=== PATIENT | female | born 1955 | race Caucasian/White ===

== ENCOUNTER → 2018-06-21 | Outpatient (CLI) | payer OTHER ==
--- NOTE | 2018-06-26 11:25 | MM ---
Reason for exam: screening (asymptomatic). Last mammogram was performed 1 year and 11 months ago. History: Patient is postmenopausal. Physical Findings: A clinical breast exam by your physician is recommended on an annual basis and results should be correlated with mammographic findings. MG Screening Mammo w CAD Bilateral CC and MLO view(s) were taken. Prior study comparison: July 27, 2016, bilateral MG 3d screening mammo w/cad. May 30, 2015, bilateral MG screening mammo w CAD. There are scattered fibroglandular densities. Benign appearing bilateral calcifications. No suspicious abnormality. No significant changes when compared with prior studies. ASSESSMENT: Benign, BI-RAD 2 RECOMMENDATION: Routine screening mammogram of both breasts in 1 year.
== END | disposition home or self-care (01) ==
LOC: RADMAMWWP 06:45
PROVIDERS: ATTEND Family Medicine
DX: Z12.31 Encounter for screening mammogram for malignant neoplasm of breast (principal)
CPT/HCPCS: 77067

== ENCOUNTER 2018-07-28 07:41 | Day surgery (SDC) | payer OTHER ==
[2018-07-27 08:40] VITALS: BMI 37.3
[~2018-07-28 07:41] MED LIST: LACTATED RINGERS 1,000 ML IV SCH
[2018-07-28 08:41] VITALS: RESP 16; TEMP 97.8
[2018-07-28 09:01] LABS: Glucose,Whole Blood 125 mg/dL (75-99)
[2018-07-28] MEDS ORDERED: PROPOFOL 10 MG/ML 20 ML VIAL IV ONE (09:31)
--- NOTE | 2018-07-28 09:33 | P.GSHP ---
History of Present Illness H&P Date: 07/28/18 Chief Complaint: History of colon polyps This is a 63-year-old female who presents today for colonoscopy. Patient has history of colon polyps. Her last colonoscopy was 3 years ago. Past Medical History Past Medical History: Diabetes Mellitus Additional Past Medical History / Comment(s): ON LISINOPRIL AND ATORVASTATIN FOR DIABETES. DOES NOT HAVE HIGH B/P OR HIGH CHOLESTEROL History of Any Multi-Drug Resistant Organisms: None Reported Additional Past Surgical History / Comment(s): COLONOSCOPY Past Anesthesia/Blood Transfusion Reactions: No Reported Reaction Smoking Status: Never smoker - Past Family History Brother(s) Family Medical History: Cancer Father Family Medical History: Cancer Medications and Allergies Home Medications Medication Instructions Recorded Confirmed Type Aspirin [Adult Low Dose Aspirin EC] 81 mg PO DAILY 07/27/18 07/27/18 History Atorvastatin [Lipitor] 10 mg PO HS 07/27/18 07/28/18 History Cholecalciferol [Vitamin D3] 5,000 unit PO DAILY 07/27/18 07/27/18 History Cyanocobalamin (Vitamin B-12) 1,000 mcg PO DAILY 07/27/18 07/27/18 History [Vitamin B-12] Lisinopril [Zestril] 10 mg PO DAILY 07/27/18 07/28/18 History Pyridoxine [Vitamin B-6] 50 mg PO DAILY 07/27/18 07/27/18 History Tumeric 500 mg PO DAILY 07/27/18 07/28/18 History metFORMIN HCL [Glucophage] 500 mg PO BID 07/27/18 07/28/18 History Allergies Allergy/AdvReac Type Severity Reaction Status Date / Time ibuprofen Allergy PASSED Verified 07/27/18 08:31 OUT, PALMS SWEATY AND ITCHING , FOGGY Sulfa (Sulfonamide Allergy RASH, FELT Verified 07/27/18 08:31 Antibiotics) FOGGY Surgical - Exam Vital Signs Temp Pulse Resp BP Pulse Ox 97.8 F 87 16 143/79 96 07/28/18 08:39 07/28/18 08:39 07/28/18 08:39 07/28/18 08:39 07/28/18 08:39 - General well developed, no distress - Eyes PERRL - ENT normal pinna - Neck no masses - Respiratory normal expansion - Cardiovascular Rhythm: regular - Abdomen Abdomen: soft, non tender Results - Labs Abnormal Lab Results - Last 24 Hours (Table) 07/28/18 Range/Units 08:53 POC Glucose (mg/dL) 125 H (75-99) mg/dL Assessment and Plan Assessment: History of colon polyps. We'll perform colonoscopy.
--- NOTE | 2018-07-28 09:46 | P.OP ---
Date of Procedure: 07/28/18 Preoperative Diagnosis: History of colon polyps Postoperative Diagnosis: Colonoscopy Procedure(s) Performed: Colonoscopy Anesthesia: MAC Surgeon: Demetrius Bustamante Pathology: none sent Condition: stable Disposition: PACU Description of Procedure: PROCEDURE: The patient was placed on the endoscopy table in the lateral position. Digital rectal examination was performed which revealed no abnormalities. . Flexible colonoscope was then placed in the patient's anus and passed throughout the entire colon. The ileocecal valve was visualized. The cecum, ascending, transverse, descending and sigmoid colon were normal. The rectum was normal as well. There were no masses, polyps or diverticula noted in the entire colon. SUMMARY OF FINDINGS: Normal colonoscopy.
[2018-07-28 10:11] VITALS: BP 115/74; PULSE 70
== END 2018-07-28 10:30 | disposition home or self-care (01) ==
LOC: ORWHC2ENDO 07:41
PROVIDERS: ATTEND Surgery
DX: Z12.11 Encounter for screening for malignant neoplasm of colon (principal); Z86.010 Personal history of colon polyps; E11.9 Type 2 diabetes mellitus without complications; I10 Essential (primary) hypertension; E78.5 Hyperlipidemia, unspecified; Z79.899 Other long term (current) drug therapy; Z79.82 Long term (current) use of aspirin; Z79.84 Long term (current) use of oral hypoglycemic drugs; Z88.6 Allergy status to analgesic agent; Z88.2 Allergy status to sulfonamides
CPT/HCPCS: J2704; G0105

== ENCOUNTER → 2019-11-14 | Outpatient (CLI) | payer OTHER ==
--- NOTE | 2019-11-14 17:04 | BD ---
EXAMINATION TYPE: Axial Bone Density DATE OF EXAM: 11/14/2019 COMPARISON: NONE CLINICAL HISTORY: Height: 67 IN Weight: 249 LBS RISK FACTORS HISTORY OF: Active: YES Diet low in dairy products/other sources of calcium: YES Postmenopausal woman: AGE 47 Lost more than 2 inches in height since high school: YES 3" MEDICATIONS: Additional Medications: CALCIUM, VIT D,METFORMIN,LISINOPRIL, ATORVASTATIN EXAM MEASUREMENTS: Bone mineral densitometry was performed using the [employer] System. Bone mineral density as measured about the Lumbar spine is: ----- L1-L4(G/cm2): 0.946 T Score Values are as follows: ----- L2: -2.5 ----- L3: -2.4 ----- L4: -1.0 ----- L1-L4: -1.9 Bone mineral density BASELINE Bone mineral density about the R hip (g/cm2): 0.827 Bone mineral density about the L hip (g/cm2): 0.864 T Score values are as follows: -----R Neck: -1.5 -----L Neck: -1.2 -----R Total: -1.0 -----L Total: -1.3 Bone mineral density BASELINE IMPRESSION: Osteopenia (T Score between -2.5 and -1). There is slightly increased risk of fracture and the patient may be considered for treatment. Re-Screen 2-5 years. NOTE: T-SCORE=SD OF THE YOUNG ADULT MEAN.
== END | disposition home or self-care (01) ==
LOC: RADBDWWP 16:08
PROVIDERS: ATTEND Family Medicine
DX: Z13.820 Encounter for screening for osteoporosis (principal); M85.88 Other specified disorders of bone density and structure, other site
CPT/HCPCS: 77080

== ENCOUNTER → 2020-09-17 | Outpatient (CLI) | payer OTHER ==
--- NOTE | 2020-09-18 10:51 | MM ---
Reason for exam: screening (asymptomatic). Last mammogram was performed 2 years and 3 months ago. History: Patient is postmenopausal. Physical Findings: A clinical breast exam by your physician is recommended on an annual basis and results should be correlated with mammographic findings. MG 3D Screening Mammo W/Cad Bilateral CC and MLO view(s) were taken. XCCL view(s) were taken of the right breast. Prior study comparison: June 21, 2018, bilateral MG screening mammo w CAD. July 27, 2016, bilateral MG 3d screening mammo w/cad. There are scattered fibroglandular densities. There are benign appearing round calcifications bilaterally. There is no discrete abnormality. ASSESSMENT: Benign, BI-RAD 2 RECOMMENDATION: Routine screening mammogram of both breasts in 1 year.
== END | disposition home or self-care (01) ==
LOC: RADMAMWWP 13:31
PROVIDERS: ATTEND Family Medicine
DX: Z12.31 Encounter for screening mammogram for malignant neoplasm of breast (principal)
CPT/HCPCS: 77063; 77067

== ENCOUNTER → 2023-02-02 | Outpatient (CLI) | payer MEDICARE, OTHER ==
--- NOTE | 2023-02-03 09:38 | MM ---
Reason for Exam: Screening (asymptomatic). Last mammogram was performed 2 year(s) and 4 month(s) ago. Patient History: Menarche at age 16. First Full-Term at age 25. Postmenopausal. Risk Values: Kaelyn 5 year model risk: 1.4%. Prior Study Comparison: 07/27/2016 Bilateral Screening Mammogram, [facility]. 06/21/2018 Bilateral Screening Mammogram, [facility]. 09/17/2020 Bilateral Screening Mammogram, [facility]. Tissue Density: There are scattered fibroglandular densities. Findings: Analyzed By CAD. Pattern appears symmetrical and stable. No significant interval change is evident. No suspicious groups of microcalcifications, spiculated or lobular masses, architectural distortion or other secondary signs of malignancy are mammographically apparent. Overall Assessment: Benign, BI-RAD 2 Management: Screening Mammogram of both breasts in 1 year. A negative mammogram report should not preclude additional follow up of suspicious palpable abnormalities. Patient should continue monthly self breast exam. A clinical breast exam by your physician is recommended on an annual basis and results should be correlated with mammographic findings. Electronically signed and approved by: Erik Mcneill D.O. Radiologis
== END | disposition home or self-care (01) ==
LOC: RADMAMWWP 11:18
PROVIDERS: ATTEND Family Medicine
DX: Z12.31 Encounter for screening mammogram for malignant neoplasm of breast (principal); Z78.0 Asymptomatic menopausal state
CPT/HCPCS: 77063; 77067

== ENCOUNTER → 2023-03-23 | Outpatient (CLI) | payer MEDICARE, OTHER ==
--- NOTE | 2023-03-23 13:01 | NM ---
EXAMINATION TYPE: NM stress cardiolite complete DATE OF EXAM: 03/23/2023 COMPARISON: NONE CLINICAL INDICATION: Female, 67 years old with history of R0789; Chest pain TECHNIQUE: After the intravenous administration of 9.6 mCi Tc 99m Sestamibi - Rest images obtained 7 5 minutes post injection. The patient exercised using a NISSA protocol and 1 minute prior to peak e xercise was injected with 23.8 mCi Tc 99m Sestamibi - Stress images obtained 45 minutes post injectio n. FINDINGS: Targeted heart rate was achieved during performance of the study. Review of stress and rest SPECT venice ges demonstrates no distinct perfusion abnormality. Gated analysis shows normal wall motion with an estimated left ventricular ejection fraction of 73 %. IMPRESSION: No scintigraphic evidence for reversible ischemia
--- NOTE | 2023-03-23 16:55 | CA ---
Exercise Nuclear Stress Test Report Name: Yu Cortez Exam Date: 03/23/2023 09:55 Exam Location: [facility] Ht (in): 68 Wt (lb): 240 BSA: 2.21 Ordering Phys: Nader Huddleston MD Referring Phys: Paul, Technologist: ARIEL,, Age: 67 Gender: F : 1955 Procedure CPT: Indications: R0789 ICD-10 Codes: Patient History: Chest Pain and Palpitations Medications: Meds past 24 hrs: Pretest Chest Pain: STRESS TEST Eddie Protocol Exercise Duration (min:sec): 03:[address] Depressions (mm): Angina Score: Fofana Score: Resting HR (bpm): 76 Peak HR (bpm): 158 Resting BP (mmHg): 130 / 76 Peak BP (mmHg): 206 / 74 MPHR: 154 Target HR: 131 % MPHR: 103 METS: 4.7 Total Dose: Peak Dose: Atropine: Double Product: 02307 BP Response: Stress Termination: Reached target heart rate Stress Symptoms: Dyspnea Stress Summary: ECG ANALYSIS Resting ECG: Stress ECG: CONCLUSIONS Baseline EKG revealed a normal sinus rhythm with evidence of right bundle branch block pattern. Patient walked on a standard Eddie protocol for a total duration of 3 minutes and 8 seconds. Maximal heart rate was 158 bpm available 85% of predicted maximal. However as patient exercised in the heart rate went up to QRS widening was noted making is an inconclusive stress test by EKG criteria. Patient had shortness of breath isolated PVCs and EKG was inconclusive because of QRS widening. If ischemia suspected I would recommend a pharmacological nuclear study. This is therefore an inconclusive stress test with subjective symptoms of shortness of breath and rare isolated PVCs. Ischemia cannot be excluded would recommend pharmacological nuclear study Dr. Lissette Hurd MD (Electronically Signed) Final Date: 23 Mar 2023 16:55
== END | disposition home or self-care (01) ==
LOC: RADNMMAIN 07:47
PROVIDERS: ATTEND Family Medicine
DX: R07.89 Other chest pain (principal); E11.9 Type 2 diabetes mellitus without complications
CPT/HCPCS: 93017; 78452; A9500

== ENCOUNTER → 2024-02-07 | Outpatient (CLI) | payer MEDICARE ==
--- NOTE | 2024-02-07 11:23 | BD ---
EXAMINATION TYPE: Axial Bone Density DATE OF EXAM: 02/07/2024 CLINICAL HISTORY: 68 years old Female. ICD-10 CODE: M85.80 OSTEOPENIA Height: 68 Weight: 236.8 FRAX RISK QUESTIONS: Alcohol (3 or more units per day): no Family History (Parent hip fracture): no Glucocorticoids (More than 3mos): no (Ex: prednisone, prednisolone, methylprednisolone, dexamethasone, and hydrocortisone). History of Fracture in Adulthood: no Secondary Osteoporosis: 1. Type 1 Diabetes: no 2. Hyperthyroidism: no 3. Menopause before 45: no 4. Malnutrition: no 5. Chronic liver disease: no Rheumatoid Arthritis: no Current Tobacco Use: no RISK FACTORS HISTORY OF: Surgery to Spine/Hip(right/left)/Wrist (right/left): no MEDICATIONS: EXAM MEASUREMENTS: Bone mineral densitometry was performed using the [employer] System. Bone mineral density as measured about the Lumbar spine is: ----- L1-L4(G/cm2): 1.017 T Score Values are as follows: ----- L1: -1.9 ----- L2: -1.7 ----- L3: -2.0 ----- L4: -0.1 ----- L1-L4: -1.4 Z Score Values are as follows: ----- L1: -1.5 ----- L2: -1.2 ----- L3: -1.6 ----- L4: 0.4 ----- L1-L4: -0.9 Bone mineral density has: increased 7.5 % since study of: 11.14.2019 Bone mineral density about the R hip (g/cm2): 0.908 Bone mineral density about the L hip (g/cm2): 0.835 T Score values are as follows: -----R Neck: -1.2 -----L Neck: -1.4 -----R Total: -0.8 -----L Total: -1.4 Z Score values are as follows: -----R Neck: -0.4 -----L Neck: -0.6 -----R Total: -0.3 -----L Total: -0.9 Bone mineral density has: increased 1.0 % since study of: 1.8.2019 FRAX%s: The graph provided illustrates a 8.7% chance for a major osteoporotic fx and a 1.0% chance fo r the hips probability for fx in 10 years time. IMPRESSION: Osteopenia (T Score between -2.5 and -1). There is slightly increased risk of fracture and the patient may be considered for treatment. Re-Screen 2-5 years. NOTE: T-SCORE=SD OF THE YOUNG ADULT MEAN.
--- NOTE | 2024-02-08 07:52 | MM ---
Reason for Exam: Screening (asymptomatic). Last mammogram was performed 1 year(s) and 1 month(s) ago. Patient History: Menarche at age 16. First Full-Term at age 25. Postmenopausal. Patient has history of breast feeding. Risk Values: Kaelyn 5 year model risk: 1.4%. NCI Lifetime model risk: 4.8%. Prior Study Comparison: 06/21/2018 Bilateral Screening Mammogram, [facility]. 09/17/2020 Bilateral Screening Mammogram, [facility]. 02/02/2023 Bilateral MG 3D screening mammo w/cad, [facility]. Tissue Density: There are scattered areas of fibroglandular density. Findings: Analyzed By CAD. The pattern is symmetrical. 9 calcifications are within the right breast. Benign spherical calcifications are present bilaterally No suspicious groups of microcalcifications, spiculated or lobular masses, architectural distortion or other secondary signs of malignancy are mammographically apparent. Overall Assessment: Benign, BI-RAD 2 Management: Screening Mammogram of both breasts in 1 year. A negative mammogram report should not preclude additional follow up of suspicious palpable abnormalities. Patient should continue monthly self breast exam. A clinical breast exam by your physician is recommended on an annual basis and results should be correlated with mammographic findings. Electronically signed and approved by: Erik Mcneill D.O. Radiologis
== END | disposition home or self-care (01) ==
LOC: RADBDWWP 07:04
PROVIDERS: ATTEND Family Medicine
DX: Z12.31 Encounter for screening mammogram for malignant neoplasm of breast (principal); M85.89 Other specified disorders of bone density and structure, multiple sites
CPT/HCPCS: 77063; 77067; 77080

== ENCOUNTER → 2025-01-24 | Outpatient (CLI) | payer MEDICARE ==
--- NOTE | 2025-01-24 09:53 | US ---
EXAMINATION TYPE: US liver DATE OF EXAM: 01/24/2025 COMPARISON: NONE CLINICAL INDICATION: Female, 69 years old with history of R74.01 ELEVATED LFT'S; LFTs TECHNIQUE: Grayscale and color Doppler imaging of the right upper quadrant was performed. FINDINGS: EXAM MEASUREMENTS: Liver Length: 22.6 cm Gallbladder Wall: 0.2 cm CBD: 0.4 cm Right Kidney: 11.0x4.3x6.9 cm Pancreas: Tail obscured by overlying bowel gas Liver: enlarged, increased echogenicity and attenuation, poor visualization of the diaphragm no ramos spicious observations. Gallbladder: wnl Evidence for sonographic Cam's sign: No CBD: wnl Right Kidney: No hydronephrosis or masses seen exam limited by bowel gas, body habitus, and attenuation from the liver IMPRESSION: Hepatic steatosis. No suspicious observations. [facility] Yaima De Los Santos, , 01/24/2025 9:50 AM
== END | disposition home or self-care (01) ==
LOC: RADUSWWP 08:46
PROVIDERS: ATTEND Family Medicine
DX: K76.0 Fatty (change of) liver, not elsewhere classified (principal); R74.01 Elevation of levels of liver transaminase levels
CPT/HCPCS: 76705